=== PATIENT | female | born 1990 | race Caucasian/White ===

== ENCOUNTER 2017-03-17 20:55 | Emergency (ER) | payer BC ==
--- NOTE | 2017-03-17 20:57 | EDM.PDOC ---
ED HPI GENERAL MEDICAL PROBLEM - General Chief Complaint: Trauma Stated Complaint: [facility] Time Seen by Provider: 03/17/17 20:56 - History of Present Illness INITIAL COMMENTS - FREE TEXT/NARRATIVE: 26-year-old female presents emergency room via EMS after being injured participating in [place]. This occurred shortly before arrival the patient fell injuring her right elbow and left leg she tried to get back up again it felt like her whole left leg gave out on her. Patient denies prior injuries to these areas. Patient had difficulty with ambulation after this with unsteadiness in this extremity. Patient denies any other injuries associated with participation in this sport this evening Patient's had a hysterectomy as a result of endometriosis and has had multiple abdominal surgeries as a result of endometriosis otherwise past medical history is unremarkable Left Lower Leg Pain Score (Numeric/FACES): 8 - Related Data Allergies Allergy/AdvReac Type Severity Reaction Status Date / Time acetaminophen Allergy Anxiety Verified 03/17/17 21:07 [From Darvocet-N] azithromycin Allergy Hives Verified 03/17/17 21:07 [From Zithromax Z-Jose] lorazepam [From Ativan] Allergy Anxiety Verified 03/17/17 21:07 Penicillins Allergy Hives Verified 03/17/17 21:07 prednisone Allergy Hives Verified 03/17/17 21:07 propoxyphene Allergy Anxiety Verified 03/17/17 21:07 [From Darvocet-N] Sulfa (Sulfonamide Allergy Hives Verified 03/17/17 21:07 Antibiotics) vancomycin Allergy Hives Verified 03/17/17 21:07 Home Meds: Home Meds Albuterol [Proventil HFA] 1 puff INH Q4H PRN 03/17/17 [History] ClonazePAM [KlonoPIN] 0.5 mg PO Q4H PRN 03/17/17 [History] DULoxetine [Cymbalta] 120 mg PO DAILY 03/17/17 [History] Lubiprostone [Amitiza] 8 mcg PO BID 03/17/17 [History] Ondansetron [Zofran ODT] 4 mg PO Q6H PRN 03/17/17 [History] ED ROS GENERAL - Review of Systems Review Of Systems: See Below Constitutional: Reports: No Symptoms HEENT: Reports: No Symptoms Respiratory: Reports: No Symptoms Cardiovascular: Reports: No Symptoms GI/Abdominal: Reports: No Symptoms : Reports: No Symptoms ED EXAM, GENERAL - Physical Exam Exam: See Below Exam Limited By: No Limitations General Appearance: Alert, Mild Distress (She seems a little anxious) Head: Atraumatic, Normocephalic Neck: Normal Inspection, Supple, Non-Tender, Full Range of Motion. No: Lymphadenopathy (L), Lymphadenopathy (R) Respiratory/Chest: Lungs Clear, Normal Breath Sounds, No Accessory Muscle Use Cardiovascular: Regular Rate, Rhythm, No Edema, No Murmur Back Exam: Normal Inspection. No: CVA Tenderness (L), CVA Tenderness (R), Muscle Spasm, Paraspinal Tenderness, Vertebral Tenderness Extremities: Other (Patient significant discomfort in the left lower extremity both in the calf and the thigh any sort of range of motion testing is limited by discomfort neurovascular status of the foot appears to be normal examination of the right upper extremity shows full flexion extension supination pronation of the elbow however she has tenderness over the olecranon.) Course - Vital Signs Last Recorded V/S: Last Vital Signs Temp 37.1 C 03/17/17 20:57 Pulse 119 H 03/17/17 20:57 Resp 20 03/17/17 20:57 BP 123/88 03/17/17 20:57 Pulse Ox 99 03/17/17 20:57 - Orders/Labs/Meds Orders: Active Orders 24 hr Category Date Time Status Elbow Min 3V Rt [CR] Stat Exams 03/17/17 21:04 Taken Femur Min 2V Lt [CR] Stat Exams 03/17/17 21:04 Taken Tibia Fibula Lt [CR] Stat Exams 03/17/17 21:04 Taken Durable Medical Equipment for Discharge [DME for Oth 03/17/17 23:04 Ordered Discharge] [COMM] Stat Meds: Medications Discontinued Medications Generic Name Dose Route Start Last Admin Trade Name Freq PRN Reason Stop Dose Admin Hydrocodone Bitart/Acetaminophen 1 tab 03/17/17 23:01 03/17/17 23:14 [place] 325-5 Mg PO 03/17/17 23:02 1 tab ONETIME ONE Administration Fentanyl 50 mcg 03/17/17 21:09 03/17/17 21:49 Sublimaze IVPUSH 03/17/17 21:10 50 mcg ONETIME ONE Administration Fentanyl 50 mcg 03/17/17 22:23 03/17/17 22:31 Sublimaze IVPUSH 03/17/17 22:24 50 mcg ONETIME ONE Administration Ondansetron HCl 4 mg 03/17/17 22:23 03/17/17 22:31 Zofran IVPUSH 03/17/17 22:24 4 mg ONETIME ONE Administration - Re-Assessments/Exams Free Text/Narrative Re-Assessment/Exam: 03/17/17 23:29 X-ray examination of the left lower extremity is unremarkable for fracture or dislocation right elbow does not show any acute fracture dislocation. Patient is ambulating without difficulty with crutches and a knee immobilizer on the left we will discharge her with these give her some [place] for pain relief and have her followup in the clinic this next week. Departure - Departure Time of Disposition: 23:31 Disposition: Home, Self-Care 01 Clinical Impression: Injury of right elbow, Injury of left thigh, Left knee injury, Injury of left lower leg - Discharge Information Additional Instructions: Return to the emergency room with any questions or problems. Keep the knee immobilizer in place. Use the crutches all the time for moving around. Keeping her leg elevated as tolerated. You have been given some pain medication, [place], one every 4-6 hours as needed for pain. Do not drive or returning to work within 12 hours of using the [place]. Do not drive while needing the knee immobilizer. - My Orders Last 24 Hours: My Active Orders 03/17/17 21:04 Elbow Min 3V Rt [CR] Stat Femur Min 2V Lt [CR] Stat Tibia Fibula Lt [CR] Stat 03/17/17 23:04 Durable Medical Equipment for Discharge [DME for Discharge] [COMM] Stat - Assessment/Plan Last 24 Hours: My Active Orders 03/17/17 21:04 Elbow Min 3V Rt [CR] Stat Femur Min 2V Lt [CR] Stat Tibia Fibula Lt [CR] Stat 03/17/17 23:04 Durable Medical Equipment for Discharge [DME for Discharge] [COMM] Stat
[2017-03-17 21:05] VITALS: BP 123/88
[2017-03-17] MEDS ORDERED: fentaNYL 100 MCG/2 ML SDV IVPUSH ONE ×2 (21:09→22:23)
[2017-03-17] MEDS ORDERED: Ondansetron 4 MG/2 ML SDV IVPUSH ONE (22:23)
[2017-03-17] MEDS ORDERED: Acetaminophen/HYDROcodone 325-5 MG Tab PO ONE (23:01)
--- NOTE | 2017-03-20 09:36 | CR ---
Left tibia and fibula: Two views of the left tibia and fibula were obtained. Comparison: No previous study. No fracture or other abnormality is seen. Impression: 1. No abnormality identified on two-view left tibia and fibula study. Diagnostic code #1
--- NOTE | 2017-03-20 09:36 | CR ---
Right elbow: Four views of the right elbow were obtained. Comparison: No previous study. Joint spaces are preserved. No joint effusion is seen. No fracture or other abnormality is seen. Impression: 1. No abnormality is identified on right elbow study. Diagnostic code #1
--- NOTE | 2017-03-20 09:36 | CR ---
Left femur: AP and lateral views of the left femur were obtained. Comparison: No previous study. No fracture or other abnormality is seen. Impression: 1. No abnormality is identified on left femur study. Diagnostic code #1
== END 2017-03-17 23:50 | disposition home or self-care (01) ==
LOC: JD.ED 20:55
DX: S59.901A Unspecified injury of right elbow, initial encounter (principal); S79.922A Unspecified injury of left thigh, initial encounter; S89.92XA Unspecified injury of left lower leg, initial encounter; Z88.8 Allergy status to other drugs, medicaments and biological substances; Z88.0 Allergy status to penicillin; Z88.2 Allergy status to sulfonamides; Z79.899 Other long term (current) drug therapy; Z90.710 Acquired absence of both cervix and uterus; Z98.890 Other specified postprocedural states; W19.XXXA Unspecified fall, initial encounter; Y93.51 Activity, roller skating (inline) and skateboarding
CPT/HCPCS: 73080; 73552; 73590; 96374; 96375; 99284; A9270; J2405; J3010